=== PATIENT | female | born 1945 | race Caucasian/White ===

== ENCOUNTER 2016-09-16 06:15 | Day surgery (SDC) | payer OTHER ==
[2016-09-12 13:04] VITALS: BMI 37.8
[~2016-09-16 06:15] MED LIST: BSS (NA/CA/MG/K) BALANCED SALT SOLUTION OPHTH SOLN 15 ML BOTTLE OS ONE; CHONDROITIN SU A/HYALUR SOD 1 KIT IO ONE; EPINEPHrine/PF 1 MG/1 ML (1:1,000) AMPULE SQ ONE; LIDOCAINE HCL 1% PRESERVATIVE FREE - 30ML VIAL IO ONE; POVIDONE-IODINE 5% OPHTHALMIC PREP 30 ML SOLUTION OS ONE; TETRACAINE 0.5% OPHTH SOLN 2 ML BOTTLE OS ONE; TOBRA 0.3%/DEXAMETH 0.1% OPHTHALMIC SUSP 2.5 ML BTL TP ONE
--- NOTE | 2016-09-16 06:26 | HP ---
History & Physical Update - History History: No Change - Physical Physical: No Change - Assessment Assessment: No Change - Plan Plan: No Change
[2016-09-16 06:34] VITALS: TEMP 98
[2016-09-16] MEDS: CYCLOPENTOLATE HCL 1% OPHTH SOLN 2 ML BOTTLE OP SCH ×3 (06:44→07:06)
[2016-09-16] MEDS: MOXIFLOXACIN HCL 0.5% OPHTHALMIC 3 ML BOTTLE OP SCH ×3 (06:44→07:07)
[2016-09-16] MEDS: PHENYLEPHRINE 2.5% OPHTH SOLN 15 ML BOTTLE OP SCH ×3 (06:45→07:07)
[2016-09-16] MEDS: TROPICAMIDE 1% OPHTH SOLN 15 ML BOTTLE OP SCH ×3 (06:45→07:07)
[2016-09-16] MEDS ORDERED: TOBRA 0.3%/DEXAMETH 0.1% OPHTHALMIC SUSP 2.5 ML BTL ONE (07:14)
[2016-09-16] MEDS ORDERED: EPINEPHrine/PF 1 MG/1 ML (1:1,000) AMPULE ONE (07:14)
[2016-09-16] MEDS ORDERED: TETRACAINE 0.5% OPHTH SOLN 2 ML BOTTLE ONE (07:15)
[2016-09-16] MEDS ORDERED: POVIDONE-IODINE 5% OPHTHALMIC PREP 30 ML SOLUTION ONE (07:15)
[2016-09-16] MEDS ORDERED: LIDOCAINE HCL/PF 1% SDV 5ML VIAL ONE (07:15)
[2016-09-16] MEDS ORDERED: SUCCINYLCHOLINE CHLORIDE 200 MG/10 ML VIAL ONE (07:19)
[2016-09-16] MEDS ORDERED: PROPOFOL 20 ML ONE (07:19)
[2016-09-16] MEDS ORDERED: MIDAZOLAM HCL 2 MG/2 ML SINGLE DOSE VIAL ONE (07:55)
[2016-09-16] MEDS ORDERED: TETRACAINE 0.5% OPHTH SOLN 2 ML BOTTLE OS ONE (07:57)
[2016-09-16] MEDS ORDERED: POVIDONE-IODINE 5% OPHTHALMIC PREP 30 ML SOLUTION OS ONE (07:58)
[2016-09-16] MEDS ORDERED: CHONDROITIN SU A/HYALUR SOD 1 KIT IO ONE (08:07)
[2016-09-16] MEDS ORDERED: LIDOCAINE HCL 1% PRESERVATIVE FREE - 30ML VIAL IO ONE (08:07)
[2016-09-16] MEDS ORDERED: BSS (NA/CA/MG/K) BALANCED SALT SOLUTION OPHTH SOLN 15 ML BOTTLE OS ONE (08:07)
[2016-09-16] MEDS ORDERED: EPINEPHrine/PF 1 MG/1 ML (1:1,000) AMPULE SQ ONE (08:07)
[2016-09-16] MEDS ORDERED: TOBRA 0.3%/DEXAMETH 0.1% OPHTHALMIC SUSP 2.5 ML BTL TP ONE (08:31)
[2016-09-16 09:55] VITALS: BP 145/92; PULSE 88
--- NOTE | 2016-09-16 13:39 | OP ---
DATE OF OPERATION: 09/16/2016 SURGEON: Otto Bermudez MD PREOPERATIVE DIAGNOSIS: Cataract, left eye. OPERATION: Phacoemulsification and intraocular lens implantation, left eye. POSTOPERATIVE DIAGNOSIS: Cataract, left eye. ANESTHESIA: Topical. COMPLICATIONS: None. BLOOD LOSS: None. SPECIMEN: None. BRIEF HISTORY: The patient is a 71-year-old woman with no significant past medical history who presents with decreased vision in the right eye down to 20/25-, but also with anisometropia due to prior cataract surgery in the right eye and high myopia. After the risks, benefits, and alternatives to cataract surgery were discussed with the patient, she consented to cataract surgery for the left eye. DESCRIPTION OF PROCEDURE: The patient was brought to the operating room and prepped and draped in the usual sterile fashion. Then, an eyelid speculum was inserted in the left eye, a paracentesis was made, and the anterior chamber was inflated with nonpreserved lidocaine. This was followed by injection of Viscoat. A groove was made in the superotemporal clear cornea which was tunneled forward with a crescent blade. The anterior chamber was entered with a 2.75 keratome. The cystotome was used to make an incision at the center of the capsule, and a continuous curvilinear capsulorrhexis was created. The lens was hydrodissected until it was found to rotate freely within the capsular bag. Phacoemulsification was then used to remove the lens in its entirety. Irrigation and aspiration were used to remove residual cortical material. The anterior chamber and capsular bag were reinflated with Provisc, and a 16.0 diopter [id number] AcrySof intraocular lens was injected into the capsular bag using the [place] injector. The lens was dialed into place using the Seat 14Aey hook. Irrigation and aspiration were used to remove residual viscoelastic. The wound was stromally hydrated until it was found to be watertight and the eye was in an appropriate pressure. The eyelid speculum was removed from the eye and TobraDex drops and a clear shield were placed over the left eye. The patient was transferred to the recovery room in stable condition and will follow up tomorrow. Tabatha [id number] MTDD
== END 2016-09-16 09:55 | disposition home or self-care (01) ==
LOC: JASU-SURG 06:15
PROVIDERS: ATTEND Ophthalmology
PROC: 08RK3JZ Replacement of Left Lens with Synthetic Substitute, Percutaneous Approach (ICD-10-PCS; principal; 2016-09-16 08:00)
DX: H26.9 Unspecified cataract (principal)

== ENCOUNTER 2016-12-06 07:37 | Observation (INO) | payer OTHER ==
[2016-12-06] MEDS ORDERED: morphine CARPU-JECT 4 MG/1 ML DISP.SYRIN IVPUSH ONE ×2 (07:47→09:08)
[2016-12-06] MEDS ORDERED: ASPIRIN 81 MG CHEWABLE TABLETS PO ONE (07:47)
--- NOTE | 2016-12-06 07:48 | PDOC ---
History of Present Illness - General Chief Complaint: Chest Pain Stated Complaint: CHEST PAIN Time Seen by Provider: 12/06/16 07:46 History Source: Patient Exam Limitations: No Limitations - History of Present Illness Initial Comments: 12/06/16 07:48 CHIEF COMPLAINT: Chest pain HISTORY OF PRESENT ILLNESS: This is a 71 year old female with a history of pre- DM who presents via EMS complaining of chest pain. She states that the pain woke her up from sleep at about 2:30am and has been present since then. She describes the pain as sharp, located in the right side of her chest, and radiating to her back and up to her throat. Pain is worse with deep breathing. She denies shortness of breath, nausea, diaphoresis, or any other associated symptoms. The patient is a non-smoker. She denies recent travel, trauma/surgery, calf pain /swelling, hemoptysis, and estrogen use. Surgical history: Cholecystectomy, knee replacement, gastric bypass V/s on arrival are notable for BP 150/99. BPs measured both arms; no significant difference. PCP is Dr. Michael Masters Internet Consultant is Dr. Sahu - patient reports she has had a Holter monitor in the past and had a cardiac cath several years ago REVIEW OF SYSTEMS: GENERAL/CONSTITUTIONAL: No fever or chills. No weakness. No weight change. HEAD, EYES, EARS, NOSE AND THROAT: No change in vision. No ear pain or discharge. No sore throat. CARDIOVASCULAR: See HPI. RESPIRATORY: No cough, wheezing, or shortness of breath. GASTROINTESTINAL: No nausea, vomiting, diarrhea or constipation. GENITOURINARY: No dysuria, frequency, or change in urination. MUSCULOSKELETAL: No joint or muscle swelling or pain. No neck or back pain. SKIN: No rash or easy bruising. NEUROLOGIC: No headache, vertigo, loss of consciousness, or loss of sensation. PSYCHIATRIC: No depression or anxiety. ENDOCRINE: No increased thirst. No abnormal weight change. HEMATOLOGIC/LYMPHATIC: No anemia, easy bleeding, or history of blood clots. ALLERGIC/IMMUNOLOGIC: No hives or skin allergy. No latex allergy. PHYSICAL EXAM: GENERAL: The patient is awake, alert, and fully oriented, in no acute distress. ENT: Pupils equal, round and reactive to light, extraocular movements intact, sclera anicteric, conjunctiva clear. Neck supple. LUNGS: Clear to auscultation bilaterally. Normal excursion. No respiratory distress or use of accessory muscles. CV: RRR, S1/S2, no MRG. Cap refill < 2 sec. Pain is reproducible with palpation of upper chest wall. ABDOMEN: Soft, non-distended, non-tender. EXTREMITIES: Normal range of motion, no edema. NEUROLOGICAL: Normal speech, normal gait. CN II-XII grossly intact. PSYCH: Normal mood, normal affect. SKIN: Warm, dry, normal turgor, no rashes or lesions noted. Past History - Past Medical History Allergies/Adverse Reactions: Allergies Allergy/AdvReac Type Severity Reaction Status Date / Time No Known Drug Allergies Allergy Verified 09/16/16 06:37 Home Medications: Ambulatory Orders Omeprazole 20 mg PO DAILY 07/17/16 GI Disorders: Yes (GERD) Thyroid Disease: No - Surgical History Cholecystectomy: Yes Orthopedic Surgery: Yes (TKR LEFT) - Psycho/Social/Smoking Cessation Hx Suicidal Ideation: No Smoking History: Never smoked Have you smoked in the past 12 months: No Information on smoking cessation initiated: No Hx Alcohol Use: No Drug/Substance Use Hx: No Substance Use Type: Alcohol *Physical Exam - Vital Signs Last Vital Signs Temp Pulse Resp BP Pulse Ox 98.4 F 86 16 150/99 100 12/06/16 07:45 12/06/16 07:45 12/06/16 07:45 12/06/16 07:45 12/06/16 07:45 ED Treatment Course - LABORATORY CBC & Chemistry Diagram: 12/06/16 08:08 12/06/16 08:08 - RADIOLOGY Radiology Studies Ordered: Category Date Time Status CHEST X-RAY PORTABLE* [RAD] Stat Radiology 12/06/16 07:46 Ordered Medical Decision Making - Medical Decision Making 12/06/16 08:30 A/P: 71 year old female with chest pain. Differential includes musculoskeletal pain, pleurisy, ACS, PE, pancreatitis, less likely aortic dissection. 1. EKG and housing specialist 2. CXR 3. Cardiac labs + d-dimer 4. Morphine 4mg IVP for pain 5. ASA 162mg 6. Re-evaluate 12/06/16 09:27 Labs including troponin and d-dimer are within normal limits. CXR: cardiomegaly with some atelectasis vs. scarring in the left lung base EKG repeated and shows TWI in inferior and lateral leads not present on EKG from 07/10/2016 Initial EKG here has significant motion artifact Patient re-evaluated and pain is still present Additional morphine 2mg given; will request observation for MALACHI Dr. Stuart paged 12/06/16 09:54 Dr Stuart paged 12/06/16 10:[address] Stuart Patient's private sifter and miller consulted 12/06/16 11:[address] Lito Sahu- recommends CTA to r/o dissection and duplex LEs to r/o DVTs *DC/Admit/Observation/Transfer Diagnosis at time of Disposition: Chest pain Qualifiers: Chest pain type: chest pain on breathing Qualified Code(s): R07.1 - Chest pain on breathing - Discharge Dispostion Admit: Yes
[2016-12-06] MEDS ORDERED: morphine CARPU-JECT 4 MG/1 ML DISP.SYRIN ONE (07:52)
[2016-12-06] MEDS ORDERED: ASPIRIN 81 MG CHEWABLE TABLETS ONE (07:52)
[2016-12-06 08:16] LABS: EOSINOPHIL 5.1 % (0-4.5); MCH 29.4 pg (25.7-33.7); MCHC 33.4 g/dl (32.0-36.0); MEAN CELL VOLUME 88.1 fl (80-96); MEAN PLT VOLUME 8.4 fl (7.5-11.1); NEUTROPHILS 62.9 % (42.8-82.8); PLATELET COUNT 176 K/MM3 (134-434); RDW 14.8 % (11.6-15.6); WHITE BLOOD COUNT 7.4 K/mm3 (4.0-10.0)
[2016-12-06 08:30] LABS: INR 1.06 (0.82-1.09)
[2016-12-06 08:43] LABS: ALBUMIN 3.8 g/dl (3.4-5.0); ANION GAP 8 (8-16); BILIRUBIN,TOTAL 0.4 mg/dL (0.2-1.0); CALCIUM 8.5 mg/dL (8.5-10.1); CO2 28 mmol/L (21-32); CREATININE 0.6 mg/dL (0.55-1.02); GLUCOSE,RANDOM 85 mg/dL (74-106); SGOT/AST 17 U/L (15-37); SGPT/ALT 18 U/L (12-78); TOT PROT 6.5 g/dl (6.4-8.2)
[2016-12-06 08:46] LABS: ALK PHOS 87 U/L (45-117); TROPONIN I < 0.02 ng/ml (0.00-0.05)
[2016-12-06 09:01] LABS: D-DIMER < 200 ng/ml (<200-235)
[2016-12-06] MEDS ORDERED: morphine CARPU-JECT 2 MG/1 ML DISP.SYRIN ONE (09:47)
--- NOTE | 2016-12-06 10:23 | PDOC ---
*Physical Exam - Vital Signs Last Vital Signs Temp Pulse Resp BP Pulse Ox 98.7 F 84 16 145/91 98 12/06/16 08:23 12/06/16 08:23 12/06/16 08:23 12/06/16 08:23 12/06/16 08:23 ED Treatment Course - LABORATORY CBC & Chemistry Diagram: 12/07/16 05:55 12/07/16 05:55 - ADDITIONAL ORDERS Additional order review: Laboratory Results 12/06/16 12/06/16 12/06/16 08:08 08:08 08:08 WBC RBC Hgb Hct MCV MCHC RDW Plt Count MPV Neutrophils % Lymphocytes % Monocytes % Eosinophils % Basophils % INR 1.06 D-Dimer < 200 Sodium 143 Potassium 3.9 Chloride 107 Carbon Dioxide 28 Anion Gap 8 BUN 13 Creatinine 0.6 Creat Clearance w eGFR > 60 Random Glucose 85 Calcium 8.5 Total Bilirubin 0.4 AST 17 ALT 18 Alkaline Phosphatase 87 Creatine Kinase 58 Troponin I < 0.02 Total Protein 6.5 Albumin 3.8 Lipase 158 12/06/16 08:08 WBC 7.4 RBC 4.71 Hgb 13.8 Hct 41.5 MCV 88.1 MCHC 33.4 RDW 14.8 Plt Count 176 MPV 8.4 Neutrophils % 62.9 Lymphocytes % 23.1 D Monocytes % 7.9 Eosinophils % 5.1 H Basophils % 1.0 INR D-Dimer Sodium Potassium Chloride Carbon Dioxide Anion Gap BUN Creatinine Creat Clearance w eGFR Random Glucose Calcium Total Bilirubin AST ALT Alkaline Phosphatase Creatine Kinase Troponin I Total Protein Albumin Lipase 12/06/16 08:08 RBC 4.71 MCV 88.1 MCHC 33.4 RDW 14.8 MPV 8.4 Neutrophils % 62.9 Lymphocytes % 23.1 D Monocytes % 7.9 Eosinophils % 5.1 H Basophils % 1.0 - Medications Given in the ED: ED Medications Discontinued Medications Generic Name Dose Route Start Last Admin Trade Name Freq PRN Reason Stop Dose Admin Aspirin 162 mg 12/06/16 07:47 12/06/16 07:55 Asa - PO 12/06/16 07:48 162 mg ONCE ONE Administration Morphine Sulfate 4 mg 12/06/16 07:47 12/06/16 08:02 Morphine Injection - IVPUSH 12/06/16 07:48 4 mg ONCE ONE Administration Morphine Sulfate 2 mg 12/06/16 09:08 12/06/16 09:50 Morphine Injection - IVPUSH 12/06/16 09:09 2 mg ONCE ONE Administration Medical Decision Making - Medical Decision Making 12/06/16 10:20 The patient was seen and evaluated in conjunction with NAOMY Peace under my direct supervision, ancillary studies were reviewed. I independently interviewed and evaluated the patient and I agree with the plan as outlined by NAOMY Peace. 71y F hx of dm presents with complaint of R sided chest pain that is worse with deep breaths and raditaes up to her neck since last night approx 2am. Pt denies any sob/cope, calf pain/swelling., hemoptysis, family or personal hx of PE /dvt, associated numbness/tingling/weakness in the extremities, dizziness/ vertigo, diaphoersis, n/v. Pts exam is unremarkable, pulses are symmetric in upper/lower extremities and BP is symmetric in both arms. labs were reviewed and unremarkable, including dimer. cxr unchanged from previous w/o acute process considere PE/dissection. PE less likelyas dimer is negative. will admit for further risk straetfication *DC/Admit/Observation/Transfer Diagnosis at time of Disposition: Chest pain Qualifiers: Chest pain type: chest pain on breathing Qualified Code(s): R07.1 - Chest pain on breathing - Discharge Dispostion Disposition: HOME - Prescriptions - Referrals - Patient Instructions - Post Discharge Activity
--- NOTE | 2016-12-06 11:23 | CON.CARD ---
Consult Consult Specialty:: Cardiology for Adelina Referred by:: Dr. Stuart Reason for Consultation:: chest pain - History of Present Illness Chief Complaint: chest pain radiating to back History of Present Illness: 71F HTN (off meds), h/o non-obstructive CAD on cath, GERD, awoke at 2am with sharp right sided chest pain radiating to back. Worse with movement and positional change, worse with deep breathing. D-Dimer negative; O2 saturation 99-100% on room air; no tachycardia. Denies cough, fever, chills. Denies recent URI Denies recent prolonged air or car travel. Feels different from GERD. Denies palps. Denies recent exertional PINK or CP. Says she had a stress test w/ Dr. Sahu within the last 2 years that was "OK". 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: No: Alzheimer's, CVA, Dementia, Migraine, Multiple Sclerosis, Peripheral Neuropathy, Parkinson's, Seizure, Syncope, TIA, Vertigo, Other Cardio/Vascular: Yes: CAD (non-obstructive on cath several years ago by her report), HTN (off meds) Pulmonary: No: Asthma, Bronchitis, Cancer, COPD, O2 Dependent, Pneumonia, Previously Intubated, Pulmonary Embolus, Pulmonary Fibrosis, Sleep Apnea, Other Gastrointestinal: Yes: GERD Hepatobiliary: No: Cirrhosis, Cholelithiasis, Cholecystitis, Choledocholithiasis , Hepatitis A, Hepatitis B, Hepatitis C, Other Renal/: No: Renal Failure, Renal Inusuff, BPH, Cancer, Hematuria, Hemodialysis , Neurogenic Bladder, Renal Calculi, UTI, Other Reproductive: No: Ectopic , Endometriosis, Fibroids, PID, Polycystic Ovary Syndrome, Postmenopausal, Other Psych: No: Addictions, Anxiety, Bipolar, Depression, Panic, Psychosis, Schizophrenia, Other Musculoskeletal: No: Bursitis, Chronic low back pain, Hemiparesis, Hemiplegia, Osteoarthritis, Paraplegia, Other Rheumatology: No: Fibromyalgia, Gout, Lupus, Rheumatoid Arthritis, Sarcoidosis, Vasculitis, Other Endocrine: No: [place]'s Disease, Josy's Disease, Diabetes Insipidus, Diabetes Mellitus, Hyperparathyroidism, Hyperthyroidism, Hypothyroidism, Osteopenia, SIADH, Other - Past Surgical History Past Surgical History: Yes: Bariatric Surgery, Cataract Removal, Cholecystectomy Additional Surgical History: knee surgery years ago - Alcohol/Substance Use Hx Alcohol Use: No - Smoking History Smoking history: Never smoked Have you smoked in the past 12 months: No - Social History Usual Living Arrangement: Alone 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 No h/o VTE Review of Systems Findings/Remarks: See HPI - Review of Systems Constitutional: reports: No Symptoms Eyes: reports: No Symptoms HENT: reports: No Symptoms Neck: reports: No Symptoms Cardiovascular: reports: Chest Pain Respiratory: denies: No Symptoms, Cough, Exercise Intolerance, Hemoptysis, Orthopnea, PND, Snoring, SOB, SOB on Exertion, Wheezing, Other Gastrointestinal: denies: No Symptoms, Abdominal Pain, Bloating, Constipation, Diarrhea, Dysphagia, Indigestion, Melena, Nausea, Rectal Bleeding, Vomiting, Vomiting Blood, Other Genitourinary: denies: No Symptoms, Burning, Discharge, Dysuria, Flank Pain, Frequency, Hematuria, Incontinence, Lesions, Menses, Pain, Testicular Mass, Testicular Pain, Testicular Swelling, Urgency, Vaginal Bleeding, Other Breasts: denies: No Symptoms Reported, See HPI, Breast Implants, Discharge from Nipple, Lumps, Pain, Skin Changes, Other Musculoskeletal: denies: No Symptoms, Back Pain, Crepitus, Decreased ROM, Extremity Pain, Joint Pain, Joint Swelling, Muscle Pain, Muscle Cramps, Muscle Weakness, Other Integumentary: denies: No Symptoms, Blister, Bruising, Change in Color, Eczema, Erythema, Incision, Lesions, Lump, Pallor, Pruritis, Rash, Wound, Other Neurological: denies: No Symptoms, Change in LOC, Change in Speech, Confusion, Dizziness, Headache, Incoordination, Numbness, Parasthesia, Pre-Existing Deficit , Seizure, Syncope, Tremors, Unsteady Gait, Weakness, Other Endocrine: denies: No Symptoms, Excessive Sweating, Flushing, Increased Hunger, Increased Thirst, Intolerance to Cold, Intolerance to Heat, Unexplained Weight Gain, Unexplained Weight Loss, Other Hematology/Lymphatic: denies: No Symptoms, Easily Bruised, Excessive Bleeding, Swollen Glands, Other Psychiatric: denies: No Symptoms, Altered Sleep Pattern, Anxiety, Depression, Hallucinations, Panic, Paranoia, Suicidal, Other - Risk Factors Known Risk Factors: Yes: Hypertension Vital Signs: Vital Signs Temperature 97.8 F 12/06/16 10:39 Pulse Rate 84 12/06/16 10:39 Respiratory Rate 16 12/06/16 10:39 Blood Pressure 129/92 12/06/16 10:39 O2 Sat by Pulse Oximetry (%) 98 12/06/16 10:39 Constitutional: Yes: Well Nourished Eyes: Yes: Conjunctiva Clear, EOM Intact HENT: Yes: Atraumatic, Normocephalic Neck: Yes: Supple, Trachea Midline Respiratory: Yes: CTA Bilaterally (no rales or wheezing) Gastrointestinal: Yes: Soft, Abdomen, Obese (non-tender. No rebound or guarding) Renal/: Yes: WNL Cardiovascular: Yes: Regular Rate and Rhythm JVD: No Carotid Bruit: No PMI: Non-Displaced Heart Sounds: Yes: S1, S2 (RRR, no murmurs) Extremities: Yes: Other (negative Martin's b/l) Edema: Yes Edema: LLE: Trace, RLE: Trace Neurological: Yes: Alert, Oriented ...Motor Strength: WNL - Other Data Labs, Other Data: INR, PTT INR 1.06 (0.82-1.09) 12/06/16 08:08 Laboratory Tests 12/06/16 12/06/16 12/06/16 08:08 08:08 08:08 WBC 7.4 Hgb 13.8 Hct 41.5 Plt Count 176 INR 1.06 D-Dimer < 200 Sodium 143 Potassium 3.9 Random Glucose 85 Calcium 8.5 AST 17 ALT 18 Alkaline Phosphatase 87 Creatine Kinase 58 Troponin I < 0.02 Lipase 12/06/16 08:08 WBC Hgb Hct Plt Count INR D-Dimer Sodium Potassium Random Glucose Calcium AST ALT Alkaline Phosphatase Creatine Kinase Troponin I Lipase 158 NSR w/ diffuse NSST changes inferiorly and laterally Echo: Pending Imaging - Results Chest X-ray: Report Reviewed EKG: Image Reviewed Problem List - Problems (1) Chest pain Assessment/Plan: -sharp pain radiating to back worse w/ movement and positional change -Does not appear to be coronary, by history. Will cycle enzymes and admit to tele. Echo ordered. -initial concern for PE, but with normal D-dimer and normal O2 saturation this seems less likely. -Radiation to back, will rule out dissection with CTA; should also rule out pericardial effusion although ECG not suggestive pericarditis -Other considerations include viral pleurisy or musculoskeletal strain vs atypical GERD/esophageal spasm. -Can begin ASA 81mg daily Code(s): R07.9 - CHEST PAIN, UNSPECIFIED Qualifiers: Chest pain type: chest pain on breathing Qualified Code(s): R07.1 - Chest pain on breathing (2) Hypertension Assessment/Plan: -chronic, off meds due to "controlled" BP -Would observe trend while admitted and determine need for chronic therapy Code(s): I10 - ESSENTIAL (PRIMARY) HYPERTENSION Qualifiers: Hypertension type: essential hypertension Qualified Code(s): I10 - Essential (primary) hypertension (3) CAD (coronary artery disease) Assessment/Plan: -reports cath within last 3 years as non-obstructive -Would obtain records if possible -check lipids -Cycle enzymes -Echo -ASA 81mg daily Code(s): I25.10 - ATHSCL HEART DISEASE OF [place] CORONARY ARTERY W/O ANG PCTRS Qualifiers: Coronary Disease-Associated Artery/Lesion type: [place] artery [place] vs. transplanted heart: [place] heart (4) Abnormal ECG Assessment/Plan: -nonspecific ST changes -Plan as outlined above -Tele/serial enzymes/echo -CTA to rule out dissection/early infiltrate -Try obtain old cath records -ASA daily. Code(s): R94.31 - ABNORMAL ELECTROCARDIOGRAM [ECG] [EKG]
[2016-12-06] MEDS ORDERED: SODIUM CHLORIDE 1,000 ML IV STA (12:41)
[2016-12-06 14:27] VITALS: BMI 37.8
[2016-12-06] MEDS ORDERED: FUROSEMIDE 40 MG/4 ML INJECTABLE VIAL IVPUSH ONE (15:30)
[2016-12-06 16:15] LABS: TROPONIN I < 0.02 ng/ml (0.00-0.05)
--- NOTE | 2016-12-06 16:57 | HOSP ---
Physical Examination Vital Signs: Vital Signs Temperature 97.8 F 12/06/16 14:12 Pulse Rate 110 H 12/06/16 14:12 Respiratory Rate 20 12/06/16 14:12 Blood Pressure 173/107 12/06/16 14:12 O2 Sat by Pulse Oximetry (%) 100 12/06/16 14:12 Hospitalist Encounter Assessment: Called by RN to evaluate patient for chest pain. Patient reports having right sided chest pain radiating to the left shoulder and jaw every time she takes a deep breath in, which sounds like pleuretic chest pain. Pain described as sharp in nature rated a 9/10. Patient also reports having palpitations with shortness of breath. Patient wad given fluids earlier today and will need reevaluate for fluid overload. licensing analyst showed Tachycardia with Heart rate between 109-117 BPM Physical Exam: Patient is anxious but alert, awake, and short of breath Heart: Tachycardic with regular rate Lungs: Right lower base crackles Extremities: No pitting edema STAT EKG ordered STAT Chest X-ray ordered STAT cardiac profile ordered Recommendations -If CXR shows congestive changes. Administer Lasix and monitor for improvement -Dr. Morse Notified by nurse -Dr. Diaz's service number was called Visit type - Emergency Visit Emergency Visit: Yes ED Registration Date: 12/06/16 Care time: The patient presented to the Emergency Department on the above date and was hospitalized for further evaluation of their emergent condition. - New Patient This patient is new to me today: Yes Date on this admission: 12/06/16 - Critical Care Critical Care patient: Yes Total Critical Care Time (in minutes): 35 Critical Care Statement: The care of this patient involved high complexity decision making to prevent further life threatening deterioration of the patient 's condition and/or to evalute & treat vital organ system(s) failure or risk of failure.
[2016-12-06] MEDS ORDERED: ACETAMINOPHEN 325 MG TABLET (FP) ONE (17:39)
[2016-12-06] MEDS ORDERED: ACETAMINOPHEN 325 MG TABLET (FP) PO PRN (19:38)
[2016-12-06] MEDS: cefTRIAXone 1 GM/50 ML BAG (PRE-DOCKED) IVPB SCH (20:52)
[2016-12-06] MEDS: AZITHROMYCIN IVPB 250 ML IVPB SCH (21:31)
--- NOTE | 2016-12-06 22:04 | HP ---
Admitting History and Physical - Admission Chief Complaint: sob and right sided chest pain History of Present Illness: 71 y/o female PMH of HTN (controlled off meds after bariatric surgery), s/p Cardiac Cath with non obstructive CAD, GERD, former smoker was in usual state of health until last night. She states had some back pain / discomfort in right neck /shoulder and anterior chest and took advil PM at HS - was only able to sleep about 4 hours and at 2 am was woken up by the same pain - denies diaphoresis/ radiation / or anterior chest pressure. She reports pain accentuated by respiratory movement -- made worse with deep inspiration, denies recent URI / Fever / Chills / Coughing evaluation in the ER resulted in : D-Dimer negative; O2 saturation 99-100% on room air; no tachycardia; Troponin neg X2; Lactic acid 1 further evaluation with CTA done also negative for dissection - Past Medical History CARTON CATCHER: No: Alzheimer's, CVA, Dementia, Migraine, Multiple Sclerosis, Peripheral Neuropathy, Parkinson's, Seizure, Syncope, TIA, Vertigo, Other Cardiovascular: Yes: CAD (non-obstructive on cath several years ago by her report), HTN (off meds) Pulmonary: No: Asthma, Bronchitis, Cancer, COPD, O2 Dependent, Pneumonia, Previously Intubated, Pulmonary Embolus, Pulmonary Fibrosis, Sleep Apnea, Other Gastrointestinal: Yes: GERD Hepatobiliary: No: Cirrhosis, Cholelithiasis, Cholecystitis, Choledocholithiasis , Hepatitis A, Hepatitis B, Hepatitis C, Other Renal/: No: Renal Failure, Renal Inusuff, BPH, Cancer, Hematuria, Hemodialysis , Neurogenic Bladder, Renal Calculi, UTI, Other ...: No Psych: No: Addictions, Anxiety, Bipolar, Depression, Panic, Psychosis, Schizophrenia, Other Musculoskeletal: No: Bursitis, Chronic low back pain, Hemiparesis, Hemiplegia, Osteoarthritis, Paraplegia, Other Rheumatology: No: Fibromyalgia, Gout, Lupus, Rheumatoid Arthritis, Sarcoidosis, Vasculitis, Other Endocrine: No: Stephens's Disease, Curran's Disease, Diabetes Insipidus, Diabetes Mellitus, Hyperparathyroidism, Hyperthyroidism, Hypothyroidism, Osteopenia, SIADH, Other - Past Surgical History Past Surgical History: Yes: Bariatric Surgery, Cataract Removal, Cholecystectomy - Smoking History Smoking history: Former smoker Have you smoked in the past 12 months: No - Alcohol/Substance Use Hx Alcohol Use: No - Social History ADL: Independent 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 No h/o VTE Review of Systems - Review of Systems Constitutional: reports: No Symptoms. denies: Chills, Diaphoresis, Fever, Night Sweats, Weakness Eyes: reports: No Symptoms HENT: reports: No Symptoms Neck: reports: Tenderness (right lateral /to shoulder) Cardiovascular: reports: Shortness of Breath. denies: Palpitations Respiratory: reports: SOB. denies: Cough, Hemoptysis, Wheezing Gastrointestinal: reports: No Symptoms. denies: Abdominal Pain, Constipation, Diarrhea, Nausea, Vomiting Genitourinary: reports: No Symptoms Breasts: reports: No Symptoms Reported Musculoskeletal: denies: Back Pain, Extremity Pain (right neck / right anterior chest), Muscle Pain Integumentary: reports: No Symptoms Neurological: reports: No Symptoms Endocrine: reports: No Symptoms Hematology/Lymphatic: reports: No Symptoms Physical Examination Vital Signs: Vital Signs Temperature 99.7 F H 12/06/16 17:00 Pulse Rate 120 H 12/06/16 17:00 Respiratory Rate 18 12/06/16 17:00 Blood Pressure 138/93 12/06/16 17:00 O2 Sat by Pulse Oximetry (%) 95 12/06/16 16:00 Constitutional: Yes: Well Nourished, No Distress, Calm, Mild Distress Eyes: Yes: WNL, Conjunctiva Clear, EOM Intact HENT: Yes: WNL, Atraumatic, Normocephalic Neck: Yes: WNL, Supple Cardiovascular: Yes: WNL, Regular Rate and Rhythm Respiratory: Yes: WNL, Regular, CTA Bilaterally, Other (decreased BS at right base) Gastrointestinal: Yes: WNL, Normal Bowel Sounds, Soft ...Rectal Exam: Yes: Deferred Renal/: Yes: WNL Breast(s): Yes: WNL Musculoskeletal: Yes: WNL, Muscle Pain Extremities: Yes: WNL Edema: No Peripheral Pulses WNL: Yes Integumentary: Yes: WNL Neurological: Yes: WNL, Alert, Oriented ...Motor Strength: WNL Psychiatric: Yes: WNL Problem List - Problems (1) Atypical chest pain Assessment/Plan: appreciate Cardio consult history not typical for acute coronary presentation Troponins neg / s/p cath with non obstructive CAD / related to HTN ? will need to monitor -may require medication Code(s): R07.89 - OTHER CHEST PAIN (2) Pleurisy without effusion Assessment/Plan: hx more consistent with pleuritic CP / muscular skeletal / than coronary trial of indocin 50 mg first dose tonight Code(s): R09.1 - PLEURISY (3) Abnormal ECG Code(s): R94.31 - ABNORMAL ELECTROCARDIOGRAM [ECG] [EKG] (4) Hypertension Assessment/Plan: continue to monitor if meds needed will start prior in hospital Code(s): I10 - ESSENTIAL (PRIMARY) HYPERTENSION Qualifiers: Hypertension type: essential hypertension Qualified Code(s): I10 - Essential (primary) hypertension
[2016-12-06 22:36] LABS: TROPONIN I < 0.02 ng/ml (0.00-0.05)
[2016-12-06] MEDS: MAG HYDROX/AL HYDROX/SIMETH 355 ML ORAL.SUSP PO SCH (23:24)
[2016-12-06] MEDS: INDOMETHACIN 50 MG CAPSULE PO SCH (23:24)
[2016-12-07 07:18] VITALS: PULSE 88
[2016-12-07 08:33] LABS: BASOPHIL 0.6 % (0-2.0); EOSINOPHIL 1.8 % (0-4.5); MCH 29.4 pg (25.7-33.7); MCHC 33.5 g/dl (32.0-36.0); MEAN CELL VOLUME 87.8 fl (80-96); MEAN PLT VOLUME 8.6 fl (7.5-11.1); NEUTROPHILS 65.5 % (42.8-82.8); PLATELET COUNT 178 K/MM3 (134-434); RDW 14.7 % (11.6-15.6); WHITE BLOOD COUNT 8.1 K/mm3 (4.0-10.0)
[2016-12-07 09:12] LABS: CALCIUM 8.3 mg/dL (8.5-10.1); COCKROFT - GAULT 139.4; CREATININE 0.6 mg/dL (0.55-1.02); MAGNESIUM 2.2 mg/dL (1.8-2.4)
--- NOTE | 2016-12-07 09:20 | PN ---
Progress Note, Physician Chief Complaint: feeling "much better today" Unclear if due to NSAIDS for treatment of pleurisy or secondary to starting abx for presumed PNA. - Current Medication List Current Medications: Active Medications Acetaminophen (Tylenol -) 650 mg PO Q4H PRN PRN Reason: FEVER OR PAIN Last Admin: 12/06/16 21:30 Dose: 650 mg Al Hydroxide/Mg Hydroxide (Mylanta Suspension -) 30 ml PO BID [facility] Last Admin: 12/06/16 23:24 Dose: 30 ml Aspirin (Asa -) 81 mg PO DAILY [facility] Ceftriaxone Sodium (Rocephin 1gm Ivpb (Pre-Docked)) 1 gm IVPB DAILY [facility] Last Admin: 12/06/16 20:52 Dose: 1 gm Azithromycin (Zithromax 500mg Ivpb (Pre-Docked)) 250 mls @ 250 mls/hr IVPB DAILY [facility] Last Admin: 12/06/16 21:31 Dose: 250 mls/hr Indomethacin (Indocin -) 50 mg PO BID [facility] Last Admin: 12/06/16 23:24 Dose: 50 mg - Objective Vital Signs: Vital Signs Temperature 98.5 F 12/07/16 06:00 Pulse Rate 88 12/07/16 06:00 Respiratory Rate 18 12/07/16 06:00 Blood Pressure 153/82 12/07/16 06:00 O2 Sat by Pulse Oximetry (%) 99 12/07/16 06:00 Constitutional: Yes: No Distress, Calm Eyes: Yes: Conjunctiva Clear Cardiovascular: Yes: Regular Rate and Rhythm Respiratory: Yes: Other (rales right base) Gastrointestinal: Yes: Abdomen, Obese Edema: No Neurological: Yes: Alert, Oriented Labs: CBC, BMP 12/07/16 05:55 12/07/16 05:55 INR, PTT INR 1.06 (0.82-1.09) 12/06/16 08:08 - ....Imaging EKG: Image Reviewed (TELE: NSR) Problem List - Problems (1) Chest pain Code(s): R07.9 - CHEST PAIN, UNSPECIFIED Qualifiers: Chest pain type: chest pain on breathing Qualified Code(s): R07.1 - Chest pain on breathing (2) Hypertension Code(s): I10 - ESSENTIAL (PRIMARY) HYPERTENSION Qualifiers: Hypertension type: essential hypertension Qualified Code(s): I10 - Essential (primary) hypertension (3) CAD (coronary artery disease) Code(s): I25.10 - ATHSCL HEART DISEASE OF [place] CORONARY ARTERY W/O ANG PCTRS Qualifiers: Coronary Disease-Associated Artery/Lesion type: [place] artery [place] vs. transplanted heart: [place] heart (4) Abnormal ECG Code(s): R94.31 - ABNORMAL ELECTROCARDIOGRAM [ECG] [EKG] Assessment/Plan IMP: Viral pleurisy vs early PNA: clinically improved after Rx w/ NSAIDS and abx ( after cultures) CTA negative for pulmonary embolism, pericardial effusion and aortic dissection. REC: Clearly not coronary, would continue treatment for CAP and pleurisy. ID evaluation pending: interesting that she does not have elevated WBC, points more toward viral syndrome. Lito, coverage for Adelina
[2016-12-07] MEDS ORDERED: ASPIRIN 81 MG CHEWABLE TABLETS PO SCH (10:00)
[2016-12-07] MEDS ORDERED: PT OWN MED DRAWER 7, Y5N ONE (10:18)
--- NOTE | 2016-12-07 10:20 | PN ---
Progress Note (short form) - Note Progress Note: ID Consult dictated Chest pain syndrome Community acq/ atypical pneumonia vs. viral syndrome Await c/s Continue ceftriaxone/ zithromax If stable - po levaquin
[2016-12-07] MEDS: MAG HYDROX/AL HYDROX/SIMETH 355 ML ORAL.SUSP PO SCH (10:25)
[2016-12-07] MEDS: AZITHROMYCIN IVPB 250 ML IVPB SCH (10:26)
[2016-12-07] MEDS: cefTRIAXone 1 GM/50 ML BAG (PRE-DOCKED) IVPB SCH (10:26)
[2016-12-07] MEDS: INDOMETHACIN 50 MG CAPSULE PO SCH (10:26)
[2016-12-07] MEDS ORDERED: MAG HYDROX/AL HYDROX/SIMETH 30 ML UNIT-DOSE CUP PO SCH (10:30)
--- NOTE | 2016-12-07 10:57 | CONS ---
DATE OF CONSULTATION: DATE OF DICTATION: 12/07/2016 The patient is a 71-year-old diabetic female who evaluated for possible pneumonia. She was admitted to the hospital on December 06, 2016, with right-sided chest pain. Patient states that she was awoken from sleep at approximately 2:30 a.m. with sharp, right-sided chest pain. She denied any associated shortness of breath or cough. She presented to the emergency room, where a chest x-ray was read as negative. CT scan of the chest was performed and showed atelectasis versus bibasilar infiltrates. She was empirically treated with Zithromax and ceftriaxone. She reports occasional cough productive of whitish sputum. She denies any pleuritic-type chest pain. No hemoptysis. No fever or chills. She is a nonsmoker, denies any ill contacts. No recent travel. PAST MEDICAL HISTORY: Positive for diabetes mellitus. PAST SURGICAL HISTORY: Status post cholecystectomy, total knee replacement, gastric bypass. No known allergies. MEDICATIONS: Omeprazole. SOCIAL HISTORY: She lives at home with family members. Nonsmoker, nondrinker. SYSTEMS REVIEW: Neurologic: No loss of consciousness, seizure activity, focal weakness. Cardiac: As per HPI. Respiratory: As per HPI. Gastrointestinal: Negative vomiting or diarrhea. Genitourinary: Negative for urinary tract infection. LABORATORY DATA: White count 7.4, hematocrit 41.5, platelet count 176. BUN 13, creatinine 0.6. Blood cultures are pending. PHYSICAL EXAMINATION: General: She is out of bed to chair. Vital Signs: Temperature 98.4, temperature maximum 99.7, blood pressure 145/90, pulse 96 and regular, respirations 18 per minute. HEENT: Sclerae anicteric. Cardiac: Heart sounds S1, S2. Lungs: Clear bilaterally. No rhonchi, rales, or wheezing. Abdomen: Obese, soft, nontender. Extremities: Positive for pedal edema. IMPRESSION: 1. Chest pain syndrome. 2. Community-acquired/atypical pneumonia versus viral syndrome. Await culture results. Obtain sputum culture, urine legionella and pneumococcal antigens. Continue empiric Zithromax and ceftriaxone. If stable, substitute p.o. Levaquin to complete a 7-day course. Case discussed with family members present at the time of the examination. Thank you for the kind referral. WILIAN STAUFFER M.D. JULIO/[id number]
--- NOTE | 2016-12-07 11:57 | DS ---
Physical Examination Vital Signs: Vital Signs Temperature 98.5 F 12/07/16 06:00 Pulse Rate 88 12/07/16 06:00 Respiratory Rate 18 12/07/16 06:00 Blood Pressure 153/82 12/07/16 06:00 O2 Sat by Pulse Oximetry (%) 99 12/07/16 06:00 Findings/Remarks: states her pain is "gone" explained its probably viral pleurisy explained tx and what to expect breathing is better / no splinting Constitutional: Yes: Well Nourished, No Distress, Calm Eyes: Yes: WNL, Conjunctiva Clear, EOM Intact HENT: Yes: WNL, Atraumatic, Normocephalic Neck: Yes: WNL, Supple, Trachea Midline Cardiovascular: Yes: WNL, Regular Rate and Rhythm Respiratory: Yes: WNL, Regular, CTA Bilaterally Gastrointestinal: Yes: WNL, Normal Bowel Sounds Renal/: Yes: WNL Breast(s): Yes: WNL Edema: No Peripheral Pulses WNL: Yes Integumentary: Yes: WNL ...Motor Strength: WNL Psychiatric: Yes: WNL Labs: CBC, BMP 12/07/16 05:55 12/07/16 05:55 Discharge Summary Reason For Visit: CHEST PAIN Current Active Problems Abnormal ECG (Acute) Atypical chest pain (Acute) CAD (coronary artery disease) (Acute) Chest pain (Acute) Hypertension (Acute) Pleurisy without effusion (Acute) - Instructions Referrals: Michael Masters [Non Staff, Medical] - - Home Medications Comprehensive Discharge Medication List: Ambulatory Orders History of Present Illness: 71 y/o female PMH of HTN (controlled off meds after bariatric surgery), s/p Cardiac Cath with non obstructive CAD, GERD, former smoker was in usual state of health until last night. She states had some back pain / discomfort in right neck /shoulder and anterior chest and took advil PM at HS - was only able to sleep about 4 hours and at 2 am was woken up by the same pain - denies diaphoresis/ radiation / or anterior chest pressure. She reports pain accentuated by respiratory movement -- made worse with deep inspiration, denies recent URI / Fever / Chills / Coughing evaluation in the ER resulted in : D-Dimer negative; O2 saturation 99-100% on room air; no tachycardia; Troponin neg X2; Lactic acid 1 further evaluation with CTA done also negative for dissection patient was started on Abx day 2 no significant improvement Tx for pleurisy last night with almost complete resolution of symptoms by this morning Patient will follow up in office tomorrow am ambulatory meds Omeprazole 20 mg PO DAILY 07/17/16 Aspirin [ASA -] 81 mg PO DAILY tab.chew 12/07/16 Indomethacin [Indocin -] 50 mg PO BID #15 tab-cap 12/07/16 instructed on risk of NSAIDS in gasric bypass / instructed to take with food and only for 2-3 days - once all pain resolved she should discontinue Mag Hydrox/Al Hydrox/Simeth [MAALOX *SUSPENSION* -] 30 ml PO BID ml 12/07/16 take with indocin
[2016-12-07 12:05] VITALS: BP 140/78; TEMP 98.1
--- NOTE | 2016-12-08 10:46 | EKG ---
Test Reason : Blood Pressure : / mmHG Vent. Rate : 107 BPM Atrial Rate : 107 BPM P-R Int : 154 ms QRS Dur : 078 ms QT Int : 322 ms P-R-T Axes : 023 032 000 degrees QTc Int : 429 ms SINUS TACHYCARDIA POSSIBLE LEFT ATRIAL ENLARGEMENT NONSPECIFIC T WAVE ABNORMALITY ABNORMAL ECG WHEN COMPARED WITH ECG OF 06-DEC-2016 10:00, T WAVE VARIATION Confirmed by NIKHIL GARVIN MD ([id number]) on 12/08/2016 10:45:42 AM Referred By: Jon JIN Confirmed By:NIKHIL GARVIN MD
--- NOTE | 2016-12-08 12:06 | EKG ---
Test Reason : Blood Pressure : / mmHG Vent. Rate : 088 BPM Atrial Rate : 088 BPM P-R Int : 150 ms QRS Dur : 078 ms QT Int : 330 ms P-R-T Axes : 025 049 231 degrees QTc Int : 399 ms NORMAL SINUS RHYTHM POSSIBLE LEFT ATRIAL ENLARGEMENT T WAVE ABNORMALITY, CONSIDER INFERIOR ISCHEMIA ABNORMAL ECG WHEN COMPARED WITH ECG OF 06-DEC-2016 07:47, T WAVE VARIATION Confirmed by NIKHIL GARVIN MD ([id number]) on 12/08/2016 12:06:17 PM Referred By: Confirmed By:NIKHIL GARVIN MD
--- NOTE | 2016-12-08 12:49 | EKG ---
Test Reason : Blood Pressure : / mmHG Vent. Rate : 078 BPM Atrial Rate : 078 BPM P-R Int : 154 ms QRS Dur : 078 ms QT Int : 370 ms P-R-T Axes : 030 030 004 degrees QTc Int : 421 ms NORMAL SINUS RHYTHM BASELINE ARTIFACT CANNOT RULE OUT ANTERIOR INFARCT , AGE UNDETERMINED ABNORMAL ECG WHEN COMPARED WITH ECG OF 10-JUL-2016 13:57, T WAVE VARIATION Confirmed by NIKHIL GARVIN MD ([id number]) on 12/08/2016 12:48:54 PM Referred By: Confirmed By:NIKHIL GARVIN MD
== END 2016-12-07 14:25 | disposition home or self-care (01) ==
LOC: JER 07:37 → JERBED 10:16 → UNDOADMOB 10:37 → J4W 13:50
PROVIDERS: ADMIT Family Medicine; ATTEND Family Medicine
PROC: 3E03329 Introduction of Other Anti-infective into Peripheral Vein, Percutaneous Approach (ICD-10-PCS; principal; 2016-12-06)
PROC: 3E02329 Introduction of Other Anti-infective into Muscle, Percutaneous Approach (ICD-10-PCS; 2016-12-06)
PROC: 3E033NZ Introduction of Analgesics, Hypnotics, Sedatives into Peripheral Vein, Percutaneous Approach (ICD-10-PCS; 2016-12-06)
PROC: 3E0337Z Introduction of Electrolytic and Water Balance Substance into Peripheral Vein, Percutaneous Approach (ICD-10-PCS; 2016-12-06)
DX: R07.89 Other chest pain (principal); R07.1 Chest pain on breathing; I10 Essential (primary) hypertension; I25.10 Atherosclerotic heart disease of native coronary artery without angina pectoris; E11.9 Type 2 diabetes mellitus without complications; K21.9 Gastro-esophageal reflux disease without esophagitis; R94.31 Abnormal electrocardiogram [ECG] [EKG]; R00.0 Tachycardia, unspecified; Z98.84 Bariatric surgery status; Z90.49 Acquired absence of other specified parts of digestive tract; Z96.652 Presence of left artificial knee joint; Z87.891 Personal history of nicotine dependence; R09.1 Pleurisy
CPT/HCPCS: 36415; 71010-TC; 71275-TC; 74174-TC; 80048; 80053; 80061; 82550; 83605; 83690; 83721; 83735; 83880; 84484; 85025; 85379; 85610; 87040; 93005; 93010; 93970-TC; 99285-25; G0378

== ENCOUNTER 2018-07-11 01:41 | Emergency (ER) | payer OTHER ==
[2018-07-11 01:51] VITALS: BMI 44.6
--- NOTE | 2018-07-11 01:58 | PDOC ---
History of Present Illness - General Chief Complaint: Pain, Acute Stated Complaint: ABD PAIN Time Seen by Provider: 07/11/18 01:58 History Source: Patient Exam Limitations: No Limitations - History of Present Illness Initial Comments: 73 yo F w a hx of HTN, GERD, s/p Cardiac Cath with non obstructive CAD, presents with 3 days of worsening left lower abdominal pain associated with burning when she pees and urinary frequency. She called up her PCP - Dr. Hi Pelaez - today who told her she probably had a urinary tract infection and prescribed her ciprofloxacin but said she should come into the ER to be evaluated just to be safe. She believes she feels warm but has not measured her temperature. She also endorses one episode of diarrhea yesterday, but otherwise normal bowel movements. She denies any chest pain, SOB, difficulty breathing, back pain, headache, weakness, numbness, tingling, chills, nausea, or vomiting. PCP: Hi Pelaez Allergies: Possible dye allergy. Social Hx: Former smoker PSH: Cholecystectomy, knee replacement, gastric bypass - Bariatric Surgery, Cataract Removal Past History - Past Medical History Allergies/Adverse Reactions: Allergies Allergy/AdvReac Type Severity Reaction Status Date / Time No Known Drug Allergies Allergy Verified 07/11/18 01:51 Home Medications: Ambulatory Orders Omeprazole 20 mg PO DAILY 07/17/16 Metoprolol Tartrate 10 mg PO DAILY 07/11/18 Polyethylene Glycol 3350 [Miralax (For Bowel Prep) -] 17 gm PO DAILY #1 bottle 07/11/18 Cardiac Disorders: Yes GI Disorders: Yes (GERD) Thyroid Disease: No - Surgical History Cholecystectomy: Yes Orthopedic Surgery: Yes (TKR LEFT) - Immunization History Immunization Up to Date: No - Suicide/Smoking/Psychosocial Hx Smoking History: Never smoked Have you smoked in the past 12 months: No Information on smoking cessation initiated: No Hx Alcohol Use: No Drug/Substance Use Hx: No Substance Use Type: None Hx Substance Use Treatment: No Review of Systems - Review of Systems Able to Perform ROS?: Yes Comments:: CONSTITUTIONAL: Absent: fever, no chills, no fatigue EYES: Absent: visual changes ENT: Absent: ear pain, no sore throat CARDIOVASCULAR: Absent: chest pain, no palpitations RESPIRATORY: Absent: cough, no SOB GI: Present: Abdominal pain, diarrhea Absent:no nausea, no vomiting, no constipation GENITOURINARY: Present: Dysuria, frequency, urgency Absent: no hematuria MUSKULOSKELETAL: Absent: back pain, no arthralgia, no myalgia SKIN: Absent: rash NEURO: Absent: headache *Physical Exam - Vital Signs Last Vital Signs Temp Pulse Resp BP Pulse Ox 99.8 F H 94 H 18 145/87 95 07/11/18 01:47 07/11/18 01:47 07/11/18 01:47 07/11/18 01:47 07/11/18 01:47 - Physical Exam Comments: GENERAL: Morbidly Obese, Well-appearing, well-nourished. No apparent distress. HEENT: Normocephalic, atraumatic. PERRL, EOM intact. CARDIOVASCULAR: Normal S1, S2. Regular rate and rhythm. PULMONARY: Clear to auscultation bilaterally. ABDOMEN: There is mild TTP in the LLQ. Normal bowel sounds. No suprapubic TTP, no dwayne- umbilical TTP. No CVA tenderness. EXTREMITIES: Normal ROM in all four extremities. No gross deformities. SKIN: Warm, dry. No rash NEUROLOGICAL: No focal neurological deficits. Moderate Sedation - Procedure Monitoring Vital Signs: Procedure Monitoring Vital Signs Temperature 99.8 F H 07/11/18 01:47 Pulse Rate 94 H 07/11/18 01:47 Respiratory Rate 18 07/11/18 01:47 Blood Pressure 145/87 07/11/18 01:47 O2 Sat by Pulse Oximetry (%) 95 07/11/18 01:47 ED Treatment Course - LABORATORY CBC & Chemistry Diagram: 07/11/18 02:29 07/11/18 02:29 Medical Decision Making - Medical Decision Making 73 yo F w a hx of HTN, GERD, s/p Cardiac Cath with non obstructive CAD, presents with 3 days of worsening left lower abdominal pain associated with burning when she pees and urinary frequency. - small fever orally to 99.8 DDx IBNLT: UTI/Pylo, kidney stones, diverticulitis, Other infection. Plan: UA/UC, cbc, cmp, lactic, trop, ekg, analgesia, rectal temp, re-assess. Labs and urine unremarkable. Patient is already taking ciprofloxacin. Less inclined to get a CTAP which can show diverticulitis bc patient is already taking Abx for it. *DC/Admit/Observation/Transfer Diagnosis at time of Disposition: Abdominal pain - Discharge Dispostion Disposition: HOME Condition at time of disposition: Stable Decision to Admit order: No - Prescriptions Prescriptions: Polyethylene Glycol 3350 [Miralax (For Bowel Prep) -] 17 gm PO DAILY #1 bottle - Referrals Referrals: Hi Alvarez MD [Primary Care Provider] - - Patient Instructions Printed Discharge Instructions: Acute Abdominal Pain Additional Instructions: You came into the ER with abdominal pain. We looked at your urine and found that you do not have a urinary tract infection or kidney stones. We believe your abdominal pain can be due to either constipation or an infection in your abdomen. Continue taking the antibiotics that your primary care doctor prescribed for you. Make sure to follow up with your primary care doctor in the next 72 hours. Come back to the ER if your pain worsens, you get a fever, or have any other new or worsening concerns. Take tylenol or motrin as needed for pain control. Thank you for coming to the [facility] ER. We hope you feel better soon! Print Language: CZECH - Post Discharge Activity
--- NOTE | 2018-07-11 02:11 | PDOC ---
Attending Attestation - Resident Resident Name: Manas Bhagat - ED Attending Attestation I have performed the following: I have examined & evaluated the patient, The case was reviewed & discussed with the resident, I agree w/resident's findings & plan - HPI HPI: 07/11/18 03:41 Pt comes with LLQ pain. She was started on CIPRO by PMD. She seems to have constiaption on exam and on history; no BM Sat, only BM on Fri. - Physicial Exam PE: 07/11/18 03:42 Agree with resident exam. No guarding and no rebound. - Medical Decision Making 07/11/18 03:43 All labs normal; pt will be given glycerine suppository and lactulose and she will go home with miralax prescription Heart Score/ECG Review - ECG Intrepretation Rhythm: Regular Rhythm - [place]: Normal - QRS Poor R Wave Progression: No Q Wave Present: No - ST and T Early Repolarization: No Non Specific ST-T Wave changes: No - ECG Impressions Normal ECG: Yes Non-specific ST Elevation: No Ischemic Changes: Yes (flipped lateral T waves)
[2018-07-11] MEDS ORDERED: ACETAMINOPHEN 1000 MG/100 ML VIAL (NON FORMULARY) IVPB ONE (02:37)
[2018-07-11 02:38] LABS: BASO % 0.4 % (0-2.0); EOS % 1.5 % (0-4.5); HEMATOCRIT 41.9 % (32.4-45.2); HEMOGLOBIN 14.1 GM/dL (10.7-15.3); LYMPH % 10.3 % (8-40); MCH 29.2 pg (25.7-33.7); MCHC 33.7 g/dl (32.0-36.0); MEAN CELL VOLUME 86.5 fl (80-96); MEAN PLT VOLUME 8.5 fl (7.5-11.1); MONO % 7.9 % (3.8-10.2); NEUT % 79.9 % (42.8-82.8); PLATELET COUNT 207 K/MM3 (134-434); RBC 4.84 M/mm3 (3.60-5.2); RDW 14.5 % (11.6-15.6); WHITE BLOOD COUNT 11.1 K/mm3 (4.0-10.0)
[2018-07-11 02:40] LABS: URINE APPEARANCE CLEAR; URINE BILIRUBIN NEGATIVE (<2.0 mg/dL); URINE COLOR LTYELLOW; URINE GLUCOSE (UA) NEGATIVE (NEGATIVE); URINE KETONE NEGATIVE (NEGATIVE); URINE LEUK ESTERASE NEGATIVE (NEGATIVE); URINE NITRITE NEGATIVE (NEGATIVE); URINE PROTEIN NEGATIVE (NEGATIVE); URINE UROBILINOGEN NEGATIVE mg/dL (0.2-1.0)
[2018-07-11] MEDS ORDERED: ACETAMINOPHEN INJECTION 100 ML IVPB ONE (02:46)
[2018-07-11 03:25] LABS: ALBUMIN 3.7 g/dl (3.4-5.0); ALK PHOS 103 U/L (45-117); ANION GAP 9 MMOL/L (8-16); BILIRUBIN,TOTAL 0.6 mg/dL (0.2-1); BLOOD UREA NITROGEN 12 mg/dL (7-18); CALCIUM 8.5 mg/dL (8.5-10.1); CHLORIDE 107 mmol/L (98-107); CO2 25 mmol/L (21-32); CREATININE 0.8 mg/dL (0.55-1.3); GLUCOSE,RANDOM 121 mg/dL (74-106); POTASSIUM 4.4 mmol/L (3.5-5.1); SGOT/AST 23 U/L (15-37); SGPT/ALT 17 U/L (13-61); SODIUM 141 mmol/L (136-145); TOT PROT 7.1 g/dl (6.4-8.2)
[2018-07-11] MEDS ORDERED: LACTULOSE 20 GM/30 ML UDC (FOR ORAL USE ONLY) PO ONE (03:41)
[2018-07-11] MEDS ORDERED: GLYCERIN 1 RECTAL SUPPOSITORY, ADULT PR ONE (03:41)
[2018-07-11] MEDS ORDERED: GLYCERIN 1 RECTAL SUPPOSITORY, PEDIATRIC RC ONE (03:46)
[2018-07-11] MEDS ORDERED: LACTULOSE 20 GM/30 ML UDC (FOR ORAL USE ONLY) ONE (03:46)
[2018-07-11 03:54] VITALS: BP 144/88; PULSE 86; TEMP 98.4
--- NOTE | 2018-07-11 12:11 | EKG ---
Test Reason : Blood Pressure : / mmHG Vent. Rate : 087 BPM Atrial Rate : 087 BPM P-R Int : 142 ms QRS Dur : 074 ms QT Int : 356 ms P-R-T Axes : 038 054 092 degrees QTc Int : 428 ms POOR DATA QUALITY, INTERPRETATION MAY BE ADVERSELY AFFECTED NORMAL SINUS RHYTHM POSSIBLE LEFT ATRIAL ENLARGEMENT NONSPECIFIC T WAVE ABNORMALITY ABNORMAL ECG WHEN COMPARED WITH ECG OF 06-DEC-2016 15:12, COMPARED TO EKG NO SIGNIFICANT CHANGE IS FOUND Confirmed by BECKY CARVER MD ([id number]) on 07/11/2018 12:11:10 PM Referred By: Confirmed By:BECKY CARVER MD
== END 2018-07-11 04:10 | disposition home or self-care (01) ==
LOC: JER 01:41
DX: R10.32 Left lower quadrant pain (principal); I10 Essential (primary) hypertension; K21.9 Gastro-esophageal reflux disease without esophagitis; I25.10 Atherosclerotic heart disease of native coronary artery without angina pectoris
CPT/HCPCS: 36415; 80053; 81003; 83605; 84484; 85025; 87086; 93005; 93010; 99283-25; J0131